=== PATIENT | male | born 1980 | race American Indian/Alaskan Native ===

== ENCOUNTER 2020-11-12 18:37 | Emergency (ER) | payer SELFPAY ==
--- NOTE | 2020-11-12 18:50 | Event Note ---
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 Further treatment and workup at subsequent clinical providers discretion. Patient/guardian urged not to elope from the ED as their condition may be serious if not clinically assessed and managed. Initial orders include: LABS, ct, xr
[2020-11-12] MEDS ORDERED: ONDANSETRON 4 MG/2 ML INJ IV ONE (19:01)
[2020-11-12] MEDS ORDERED: MORPHINE 2 MG/1 ML INJ IV ONE (19:01)
[2020-11-12] MEDS ORDERED: SODIUM CHLORIDE 0.9% 1000 ML 1,000 ML IV ONE (19:01)
--- NOTE | 2020-11-12 19:06 | Emergency Department Report ---
ED Fall HPI - General Chief Complaint: Fall Stated Complaint: HEAD INJURY/FELL 10FT FROM ROOF Time Seen by Provider: 11/12/20 18:46 Source: patient Mode of arrival: Ambulatory Limitations: Language Barrier - History of Present Illness Initial Comments: 40-year-old male presents to ED status post fall from roof 3 hours ago at 4 PM. Patient drove himself to the ER. Patient is complaining of headache, back pain, and right elbow pain. Patient reports LOC. Patient states he fell approximately 10 feet. Patient denies any vomiting, numbness or weakness. MD Complaint: fall -: hour(s) (3) Fall From: from height (distance) (Roof, 10 feet) When Fall Occurred: 1-3 hours [employer] Loss of Consciousness: yes Symptoms Prior to Fall: none Location: head, back Location - Extremities: Right: Elbow Severity: moderate Quality: aching Context: tripped/slipped Associated Symptoms: headache. denies: numbness, weakness, shortness of breath, abdominal pain - Related Data Home Medications Medication Instructions Recorded Confirmed Last Taken No Known Home Medications [No 11/12/20 11/12/20 Unknown Reported Home Medications] Allergies Allergy/AdvReac Type Severity Reaction Status Date / Time No Known Allergies Allergy Unverified 11/12/20 18:48 ED Review of Systems ROS: Stated complaint: HEAD INJURY/FELL 10FT FROM ROOF Other details as noted in HPI Comment: All other systems reviewed and negative Respiratory: denies: shortness of breath Gastrointestinal: denies: abdominal pain, vomiting Musculoskeletal: as per HPI Neurological: headache. denies: weakness, numbness ED Past Medical Hx - Past Medical History Previous Medical History?: Yes Hx Asthma: Yes - Medications Home Medications: Home Medications Medication Instructions Recorded Confirmed Last Taken Type No Known Home Medications [No 11/12/20 11/12/20 Unknown History Reported Home Medications] ED Physical Exam - General Limitations: No Limitations General appearance: alert, in no apparent distress - Head Head exam: Present: other (Abrasion and hematoma to occipital area) - Eye Eye exam: Present: normal appearance, PERRL, EOMI - ENT ENT exam: Present: mucous membranes moist - Neck Neck exam: Present: normal inspection. Absent: tenderness - Respiratory Respiratory exam: Present: normal lung sounds bilaterally, chest wall tenderness (Right anterior chest). Absent: respiratory distress - Cardiovascular Cardiovascular Exam: Present: regular rate, normal rhythm - GI/Abdominal GI/Abdominal exam: Present: soft. Absent: distended, tenderness - Extremities Exam Extremities exam: Present: other (Tenderness to right elbow, slightly swollen, range of motion intact; remainder of extremities are nontender with intact ROM) - Back Exam Back exam: Present: normal inspection, vertebral tenderness (Tenderness to upper thoracic spine) - Neurological Exam Neurological exam: Present: alert, oriented X3 - Psychiatric Psychiatric exam: Present: normal affect, normal mood - Skin Skin exam: Present: warm, dry, intact, normal color ED Course Vital Signs 11/12/20 11/12/20 11/12/20 18:42 19:03 19:15 Temperature 98.5 F Pulse Rate 78 73 76 Respiratory 20 20 16 Rate Blood Pressure 119/71 117/72 Blood Pressure 128/82 [Right] O2 Sat by Pulse 99 99 98 Oximetry 11/12/20 11/12/20 11/12/20 19:30 19:45 20:00 Temperature Pulse Rate 72 80 73 Respiratory 16 23 19 Rate Blood Pressure 117/72 118/66 118/66 Blood Pressure [Right] O2 Sat by Pulse 99 99 Oximetry 11/12/20 11/12/20 11/12/20 20:28 20:30 20:37 Temperature Pulse Rate 72 69 Respiratory 17 16 18 Rate Blood Pressure 110/66 110/66 Blood Pressure [Right] O2 Sat by Pulse 99 100 Oximetry 11/12/20 20:45 Temperature Pulse Rate 72 Respiratory 17 Rate Blood Pressure 121/74 Blood Pressure [Right] O2 Sat by Pulse 99 Oximetry - Reevaluation(s) Reevaluation #1: 11/12/20 21:14 ETA 20 min for transport - Consultations Consultation #1: 11/12/20 20:[address] Richardson, radiologist. Reports occipital epidural anamaria moy with occipital fracture. 11/12/20 20:[address] Preciado, neurosurgery here at [facility]. States transfer patient. [facility] transfer center called. 11/12/20 20:[address] Nieto, trauma attending at [facility]. ED Medical Decision Making - Lab Data Result diagrams: 11/12/20 19:06 11/12/20 19:06 - Radiology Data Radiology results: report reviewed, image reviewed - Medical Decision Making 40-year-old male presents to ED after falling from a roof at 4 PM. Patient drove himself to the ED. LOC reported. C-collar placed upon ED arrival. Patient complaining of headache, right elbow pain, and back pain. Patient has scalp hematoma present. There is some right anterior chest wall tenderness on exam. CT head positive for occipital fracture and epidural hematoma. Remainder of CTs, C-spine/chest/abdomen/pelvis, are all unremarkable. Spoke with trauma attending at [facility], Dr. Nieto, who excepts patient in transfer. Vital signs are stable. Patient with GCS of 15. Patient given 1 g Keppra load for seizure prophylaxis. Critical Care Time: Yes Critical care time in (mins) excluding proc time.: 35 Critical care attestation.: If time is entered above; I have spent that time in minutes in the direct care of this critically ill patient, excluding procedure time. Critical Care Time: 35 min ED Disposition Clinical Impression: Epidural hematoma, Occipital bone fracture, Contusion of right elbow Disposition: [id number]/TX-[id number] ANOTHER TYPE HLTHCARE Is pt being admited?: No Condition: Stable Referrals: PRIMARY CARE, [Primary Care Provider] - 3-5 Days Time of Disposition: 21:03
[2020-11-12 19:19] LABS: Basophils % (Auto) 0.2 % (0.0-1.8); Hematocrit 39.8 % (35.5-45.6); Hemoglobin 13.7 gm/dl (11.8-15.2); Lymphocytes # (Auto) 0.9 K/mm3 (1.2-5.4); Lymphocytes % (Auto) 6.4 % (13.4-35.0); Mean Corpuscular HGB Conc 34 % (32-34); Mean Corpuscular Volume 95 fl (84-94); Monocytes # (Auto) 0.9 K/mm3 (0.0-0.8); Monocytes % (Auto) 6.8 % (0.0-7.3); Platelet Count 381 K/mm3 (140-440); Red Blood Count 4.17 M/mm3 (3.65-5.03); Red Cell Distribution Width 13.8 % (13.2-15.2)
--- NOTE | 2020-11-12 19:23 | XRay Report ---
Right elbow 3 views INDICATION: Fall FINDINGS: Radial head and neck appear normal. Degenerative changes seen in the olecranon. Humerus grecia ears intact. No large joint effusion. IMPRESSION: No displaced fracture is definitely seen. Signer Name: Wily Armas MD Signed: 11/12/2020 7:18 PM Workstation Name: [id number]
[2020-11-12 19:33] LABS: INR 0.99 (0.87-1.13)
[2020-11-12 19:34] LABS: Partial Thromboplastin Time 25.8 Sec. (24.2-36.6)
[2020-11-12 19:38] LABS: Alanine Aminotransferase 44 units/L (7-56); Albumin 4.8 g/dL (3.9-5); BUN/Creatinine Ratio 20; Blood Urea Nitrogen 16 mg/dL (9-20); Hemolysis Index 15
--- NOTE | 2020-11-12 20:55 | Cat Scan Report ---
CT HEAD WITHOUT CONTRAST INDICATION / CLINICAL INFORMATION: fall from roof, low back pain, neck pain, LOC. TECHNIQUE: All CT scans at this location are performed using CT dose reduction for ALARA by means of automated e xposure control. COMPARISON: None available. FINDINGS: HEMORRHAGE: There is a biconvex extra-axial hematoma along the inner table of the occipital bone on t he left. This is adjacent to a nondisplaced fracture. This likely represents an epidural hematoma. Th ere is mild associated mass effect with effacement of cortical sulci along the posterior lateral aspe ct of the occipital lobe. There may be compression of the occipital horn of the left lateral ventricl e at the occipital horns of the lateral ventricles are often not symmetrical. No other areas of intra cranial hemorrhage are identified. EXTRA-AXIAL SPACES: Cortical sulci, sylvian fissures and basilar cisterns have an otherwise unremarka ble appearance. VENTRICULAR SYSTEM: Asymmetry of the occipital horn and atria of the lateral ventricles is noted. Ple ase refer to the above discussion under hemorrhage. The third and lateral ventricles are otherwise of normal size and configuration. CEREBRAL PARENCHYMA: No areas of abnormal brain parenchymal attenuation are identified. There is no i ndication of recent infarction. MIDLINE SHIFT OR HERNIATION: There is no indication of midline shift. CEREBELLUM / BRAINSTEM: Brainstem and cerebellum have an unremarkable appearance. MIDLINE STRUCTURES:No abnormalities of the pituitary gland or pineal region are identified. INTRACRANIAL VESSELS:No abnormalities are identified on this noncontrast head CT. ORBITS: visualized portions of the orbits have an unremarkable appearance. SOFT TISSUES of HEAD: Moderate left occipital scalp hematoma. CALVARIUM: Nondisplaced left occipital skull fracture. PARANASAL SINUSES / MASTOID AIR CELLS: Visualized portions of the paranasal sinuses are free from inf lammatory mucosal disease. Mastoid air cells are normally pneumatized. IMPRESSION: 1. Nondisplaced occipital fracture on the left adjacent to an extra-axial hematoma which is likely an epidural hematoma. CRITICAL RESULT: Time of Discovery (IN HOME BABY SITTER/CDT): 1939 Central standard time Time of Communication (IN HOME BABY SITTER/CDT): 1944 Central standard time Licensed Practitioner Receiving Report: Dr. Carrillo of the [facility]. Read-Back Performed: Not applicable. Signer Name: Ryan Richardson MD Signed: 11/12/2020 8:50 PM Workstation Name: [id number]
[2020-11-12 20:56] VITALS: BP 121/74
--- NOTE | 2020-11-12 20:58 | Cat Scan Report ---
CT CERVICAL SPINE WITHOUT CONTRAST INDICATION / CLINICAL INFORMATION: fall from roof, low back pain. TECHNIQUE: Axial CT images were obtained through the cervical spine. Sagittal and coronal reformatted images wer e produced. All CT scans at this location are performed using CT dose reduction for ALARA by means of automated exposure control. COMPARISON: None available. FINDINGS: ALIGNMENT: Loss of normal cervical lordosis is noted. There is no indication of traumatic subluxation . VERTEBRAE: No indication of fracture. Incidental note is made of developmental fusion at the C2-3 lev el. DISC SPACES: No significant abnormality. DEGENERATIVE CHANGES: No indication of significant facet or uncovertebral arthropathy. Disc height is normally maintained throughout. CRANIOCERVICAL JUNCTION:No significant abnormality. SPINAL CANAL: Spinal canal is adequate in size throughout cervical region. PARASPINAL SOFT TISSUES: No significant abnormality. LUNG APICES: No significant abnormality of visualized lungs. IMPRESSION: 1. No indication of fracture or traumatic subluxation. 2. 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 Signer Name: Ryan Richardson MD Signed: 11/12/2020 8:53 PM Workstation Name: [id number]
[2020-11-12] MEDS ORDERED: levETIRAcetam 1,000 MG in SODIUM CHLORIDE 0.9% 100 ML IV ONE (21:01)
--- NOTE | 2020-11-12 21:01 | Cat Scan Report ---
CT CHEST, ABDOMEN, AND PELVIS WITH IV CONTRAST INDICATION / CLINICAL INFORMATION: fall from roof, pain. TECHNIQUE: Axial CT images were obtained through the chest, abdomen, and pelvis after IV contrast. All CT scans at this location are performed using CT dose reduction for ALARA by means of automated exposure contr ol. COMPARISON: None available. FINDINGS: CHEST: No focal consolidation or pleural effusion. Heart and aorta appear normal. Prominent mediastin al paratracheal nodes. ABDOMEN/PELVIS: Fatty infiltration the liver. Spleen, adrenal glands and kidneys appear normal. Pancr eas gallbladder and upper GI tract appears normal. Kidneys are unremarkable. Urinary bladder appears normal. No free fluid in the abdomen or pelvis. SKELETAL SYSTEM: Superior and inferior pubic rami appear intact. No displaced rib fractures seen. Deg enerative changes seen throughout spine IMPRESSION: No acute findings are seen in the chest abdomen or pelvis. 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 Fatty infiltration liver. Sclerotic lesion in the left lesser trochanter. Follow-up with bone scan is recommended. Signer Name: Wily Armas MD Signed: 11/12/2020 8:56 PM Workstation Name: [id number]
[2020-11-12] MEDS: levETIRAcetam 1000 MG/NS 0.75% 1,000 MG/100 ML BAG IV ONE (21:20)
[2020-11-13] MEDS: levETIRAcetam 1000 MG/NS 0.75% 1,000 MG/100 ML BAG IV ONE (01:03)
== END 2020-11-12 21:40 | disposition other institution (70) ==
LOC: ED 18:37
DX: S06.4X9A Epidural hemorrhage with loss of consciousness of unspecified duration, initial encounter (principal); S02.119A Unspecified fracture of occiput, initial encounter for closed fracture; S50.01XA Contusion of right elbow, initial encounter; J45.909 Unspecified asthma, uncomplicated; W17.89XA Other fall from one level to another, initial encounter; Y93.89 Activity, other specified; Y92.89 Other specified places as the place of occurrence of the external cause; Y99.8 Other external cause status
CPT/HCPCS: 36415; 70450; 71260; 72125; 73080; 74177; 80053; 85025; 85610; 85730; 96361; 96374; 96375; 99291; J1953; J2270; J2405; J7030; Q9967; 80320; G0480